=== PATIENT | female | born 1945 | race Caucasian/White ===

== ENCOUNTER 2018-12-10 10:15 | Emergency (ER) | payer BC, MEDICARE ==
[2018-12-10 10:30] VITALS: BP 163/98
--- NOTE | 2018-12-10 11:43 | UC ---
Hip/Pelvis Pain - HPI Summary HPI Summary: WAS WALKING IN HER HOUSE LAST NIGHT WHEN SHE FELL AND LANDED ON HER RIGHT HIP. THINKS SHE TRIPPED ON SOMETHING. ADMITS SHE HAD A GLASS OF WINE LAST NIGHT BUT STATES SHE DOES THIS SEVERAL TIMES WEEKLY AND DOES NOT HAVE A PROBLEM WITH IT. DENIES HEAD INJURY. NO LOC. TODAY FEELS A LITTLE BIT "OFF ". - History Of Current Complaint Chief Complaint: UCBackPain Stated Complaint: hip INJURY Time Seen by Provider: 12/10/18 11:09 Hx Obtained From: Patient Onset/Duration: Sudden Onset, Lasting Hours, Still Present Timing: Constant Severity Initially: Moderate Severity Currently: Moderate Pain Intensity: 8 Pain Scale Used: 0-10 Numeric Character Of Pain: Sharp Aggravating Factor(s): Movement Alleviating Factor(s): Rest Associated Signs And Symptoms: Positive: Bruising - Allergies/Home Medications Allergies/Adverse Reactions: Allergies Allergy/AdvReac Type Severity Reaction Status Date / Time environmental Allergy Itching Uncoded 12/10/18 10:30 Home Medications: Home Medications NK [No Home Medications Reported] 12/10/18 [History Confirmed 12/10/18] PMH/Surg Hx/FS Hx/Imm Hx Previously Healthy: Yes - Surgical History Surgical History: None - Family History Known Family History: Positive: Non-Contributory - Social History Alcohol Use: Weekly Alcohol Amount: 1 glass last night Substance Use Type: None Smoking Status (MU): Never Smoked Tobacco Review of Systems All Other Systems Reviewed And Are Negative: Yes Constitutional: Positive: Negative Skin: Positive: Bruising Respiratory: Positive: Negative Cardiovascular: Positive: Negative Gastrointestinal: Positive: Negative Physical Exam Triage Information Reviewed: Yes Appearance: Well-Appearing, No Pain Distress, Well-Nourished Vital Signs: Initial Vital Signs Temp 97.9 F 12/10/18 10:24 Pulse 90 12/10/18 10:24 Resp 18 12/10/18 10:24 BP 163/98 12/10/18 10:24 Pulse Ox 99 12/10/18 10:24 Vital Signs Reviewed: Yes Eyes: Positive: Conjunctiva Clear ENT: Positive: Hearing grossly normal Neck: Positive: Supple Respiratory Exam: Normal Cardiovascular Exam: Normal Abdomen Description: Positive: Soft Musculoskeletal: Positive: ROM Intact, No Edema, Other: - no bony tenderness Neurological: Positive: Alert, Other: - CN II-XII GROSSLY INTACT BILATERALLY. RAPID ALTERNATING MOVEMENTS INTACT. NEG PRONATOR DRIFT. 5/5 STRENGTH. HEEL TO [place] INTACT BILATERALLY. FINGER TO NOSE INTACT BUT A BIT SLOW Psychological: Positive: Age Appropriate Behavior Skin: Positive: Other - bruising right hip Diagnostics - Radiology RIGHT HIP XRAYS Radiology Interpretation Completed By: Radiologist Summary of Radiographic Findings: NO RADIOGRAPHIC EVIDENCE FOR HIP FRACTURE. HEAD CT W/O CONTRAST Radiology Interpretation Completed By: Radiologist Summary of Radiographic Findings: NO ACUTE INTRACRANIAL PATHOLOGY. DIFFUSE INVOLUTIONAL CHANGE WITH CHRONIC SMALL VESSEL ISCHEMIC CHANGES. Hip Injury Course/Dx - Course Course Of Treatment: PATIENT HAS A CERTAIN LEVEL OF DEBILITY AT BASELINE. NEITHER SHE NOR HER ARE CONCERNED ABOUT HER FALL. MORE CONCERNED ABOUT HER RIGHT HIP PAIN. X-RAY TODAY UNREMARKABLE FOR ANY ACUTE BONY INJURY. CT HEAD OBTAINED DUE TO PATIENT COMPLAINT OF FEELING A BIT "OFF" TODAY ESPECIALLY IN LIGHT OF A RECENT FALL. CT HEAD DOES SHOW SOME CHRONIC CHANGES BUT NO ACUTE PATHOLOGY. DISCUSSED TRANSFER TO THE ER FOR FURTHER EVALUATION BUT THE PATIENT DECLINES IN FAVOR FOLLOWING UP WITH PCP. ADVISED TO GO TO THE ER WITHOUT FAIL IF HER SYMPTOMS WORSEN. - Differential Dx/Diagnosis Provider Diagnosis: Contusion of right hip, Fall Discharge ED - Sign-Out/Discharge Documenting (check all that apply): Patient Departure All imaging exams completed and their final reports reviewed: Yes - Discharge Plan Condition: Stable Disposition: HOME Patient Education Materials: Hip Contusion (ED) Referrals: Lianna Echols MD [Primary Care Provider] - If Needed Additional Instructions: RIGHT HIP X-RAY AND CT HEAD TODAY BOTH UNREMARKABLE FOR ANY ACUTE PATHOLOGY. REST, OTC MEDICATIONS NEEDED FOR DISCOMFORT. GO THROUGH SLOW RANGE OF MOTION EXERCISES TO PREVENT STIFFENING UP AND MAKING THE DISCOMFORT WORSE. GO TO THE ED WITHOUT FAIL IF YOU DEVELOP UNEQUAL PUPILS, VISUAL DISTURBANCE, GAIT INSTABILITY, SPEECH DIFFICULTY, NAUSEA/VOMITING, WORSENING HEADACHE, DIZZINESS, CONFUSION, WEAKNESS OR ANY OTHER CONCERNING SYMPTOMS. - Billing Disposition and Condition Condition: STABLE Disposition: Home
== END 2018-12-10 12:53 | disposition home or self-care (01) ==
LOC: UCEAST 10:15
DX: S70.01XA Contusion of right hip, initial encounter (principal); W18.30XA Fall on same level, unspecified, initial encounter; Y92.019 Unspecified place in single-family (private) house as the place of occurrence of the external cause
CPT/HCPCS: 70450; 99201; G0463